=== PATIENT | female | born 1960 | race Caucasian/White ===

== ENCOUNTER 2021-08-20 02:56 | Emergency (ER) | payer BC ==
[2021-08-20] MEDS ORDERED: Oxymetazoline HCl 0.05% ( 15 ML ) ONE (03:24)
[2021-08-20] MEDS ORDERED: Ibuprofen 200 MG TAB ONE (03:24)
[2021-08-20] MEDS ORDERED: Acetaminophen 500 MG TAB ONE (03:25)
[2021-08-20] MEDS ORDERED: Promethazine 25 MG TAB ONE (03:49)
== END 2021-08-20 04:10 | disposition home or self-care (01) ==
LOC: CSHERS 02:56
DX: H69.92 Unspecified Eustachian tube disorder, left ear (principal); E03.9 Hypothyroidism, unspecified
CPT/HCPCS: 99283; Q0169

== ENCOUNTER 2024-05-19 16:07 | Emergency (ER) | payer BC ==
[~2024-05-19 16:07] MED LIST: Iopamidol 370 76% 100 ML VIAL ONE
[2024-05-19] MEDS ORDERED: Aspirin Chewable 81 MG TAB ONE (16:21)
[2024-05-19] MEDS ORDERED: Acetaminophen 500 MG TAB ONE (16:21)
[2024-05-19] MEDS ORDERED: Nitroglycerin 0.4 MG TAB 1 EACH ONE (16:21)
[2024-05-19 16:43] LABS: #Basophils 0.06 10x3/uL (0.0-0.2); #Eosinophils 0.34 10x3/uL (0.0-0.5); #Monocytes 1.09 10x3/uL (0.0-1.1); #Neutrophils 4.77 10x3/uL (1.5-8.4); %Basophils 0.7 % (0.0-2.0); %Eosinophils 4.1 % (0.0-6.0); %Lymphocytes 24.5 % (18.0-47.0); %Monocytes 13.1 % (0.0-10.0); %Neutrophils 57.2 % (40.0-75.0); Hematocrit 41.7 % (34.9-44.5); Hemoglobin 13.9 g/dL (12.0-15.5); Mean Corpuscular HGB CONC 33.3 g/dL (32.0-36.0); Mean Corpuscular Hemoglobin 30.4 pg (27.0-33.0); Mean Corpuscular Volume 91.2 fL (81.6-98.3); Mean Platelet Volume 9.3 fL (7.4-10.4); Platelet Count 363 10x3/uL (150-450); RBC Distribution Width 13.3 % (11.5-14.5); Red Blood Cell (RBC) Count 4.57 10x6/uL (3.90-5.03); White Blood Cell (WBC) Count 8.3 10x3/uL (3.5-10.5)
[2024-05-19 16:53] LABS: ALT (SGPT) 16 U/L (8-55); AST (SGOT) 23 U/L (5-34); Albumin 4.2 g/dL (3.4-4.8); Alkaline Phosphatase 127 U/L (40-110); Anion Gap 13 mmol/L (10-20); BUN (Urea Nitrogen) 14 mg/dL (9.8-20.1); Bilirubin, Total 0.3 mg/dL (0.2-1.2); Calc. Creatinine Clearance 0 mL/min (70-130); Calcium 9.8 mg/dL (7.8-10.44); Carbon Dioxide 26 mmol/L (23-31); Chloride 102 mmol/L (98-107); Estimated GFR 86; Globulin 3.4 g/dL (2.4-3.5); Glucose 118 mg/dL (80-115); Lipase 63 U/L (8-78); Potassium 4.3 mmol/L (3.5-5.1); Protein, Total 7.6 g/dL (5.8-8.1); Sodium 137 mmol/L (136-145)
[2024-05-19 16:59] LABS: Troponin I Less than 0.010 ng/mL (< 0.028)
[2024-05-19] MEDS ORDERED: Ondansetron ODT 4 MG TAB SL PRN (20:30)
[2024-05-19] MEDS ORDERED: Ondansetron PF 4 MG/2 ML Vial IVP PRN (20:30)
== END 2024-05-19 19:38 | disposition short-term general hospital (02) ==
LOC: CSHERS 16:07
DX: I16.9 Hypertensive crisis, unspecified (principal); R07.2 Precordial pain
CPT/HCPCS: 71275; 74174; 80053; 83690; 83880; 84484; 85025; 93005; Q9967